=== PATIENT | male | born 1955 | race Caucasian/White ===

== ENCOUNTER 2018-06-26 18:45 | Observation (INO) ==
[2018-06-26] MEDS ORDERED: KETOROLAC 30 MG/1 ML VIAL IV STA (19:04)
[2018-06-26] MEDS ORDERED: ONDANSETRON 4 MG/2 ML VIAL IV STA (19:04)
[2018-06-26] MEDS ORDERED: ONDANSETRON 4 MG/2 ML VIAL IV PRN (19:35)
[2018-06-26] MEDS ORDERED: MORPHINE 4 MG/1 ML VIAL IV PRN (19:39)
[2018-06-26 19:50] LABS: Basophils # 0.1 10*3/uL (0.0-0.2); Basophils % 0.3 % (0.0-0.8); Hemoglobin 14.6 GM/DL (14.0-18.0); Immature Granulocytes Absolute 0.19 #; Lymphocytes % 5.4 % (21.2-54.2); Mean Corpuscular Hemoglobin 30 PG (27-34); Mean Platelet Volume 10.7 FL (9.6-12.0); Monocytes # 1.8 10*3/uL (0.11-0.8); Monocytes % 9.8 % (1.7-12.7); Neutrophils # 15.7 10*3/uL (1.4-7.4); Neutrophils % 83.5 % (38.7-73.9); Platelet Count 263 T/CUMM (130-400); Red Blood Count 4.94 MC/CUMM (3.8-5.5); Red Cell Distribution Width 13.1 % (9.3-17.3); White Blood Count 18.8 T/CUMM (4-12)
[2018-06-26] MEDS ORDERED: metroNIDAZOLE INJ 500 MG in PREMIX 1 EACH IV SCH (20:00)
[2018-06-26] MEDS ORDERED: DEXTROSE 5% LACTATED RINGERS 1,000 ML IV SCH (20:00)
[2018-06-26 20:01] LABS: Albumin 3.6 G/DL (3.4-5.0); Bilirubin,Total 1.2 MG/DL (0.2-1.0); Calcium 8.9 MG/DL (8.5-10.1); Osmolality,Calculated 266.5 MOS/KG (273-304); Potassium 2.9 MMOL/L (3.5-5.1); Total Protein 7.2 G/DL (6.4-8.3)
[2018-06-26 20:12] LABS: Apearance,Urine CLEAR (Clear); Bilirubin,Urine Negative (Negative); Blood, Urine Negative (Negative); Glucose,Urine (UA) Negative (Negative); Ketones,Urine Negative (Negative); Mucus,Urine Occasional /LPF (Occasional); Nitrite,Urine Negative (Negative); Protein,Urine Negative; RBC,Urine <1 /HPF (0-4); Urine Color Yellow (Yellow); Urine Urobilinogen < 2.0 EU/DL (0.2-1.0); WBC,Urine 1 /HPF (0-6)
[2018-06-27] MEDS: PIPERACILLIN/TAZOBACTAM 3,375 MG in SODIUM CHLORIDE 0.9% 100 ML IV SCH ×2 (02:33→10:07)
[2018-06-27 04:50] LABS: Basophils % 0.2 % (0.0-0.8); Eosinophils % 0.1 % (0.00-10.9); Hematocrit 38.2 VOL% (42.0-52.0); Hemoglobin 12.9 GM/DL (14.0-18.0); Immature Granulocytes % 0.7 %; Immature Granulocytes Absolute 0.12 #; Lymphocytes # 1.7 10*3/uL (1.4-4.0); Lymphocytes % 9.9 % (21.2-54.2); Mean Corpuscular HGB Conc 33.8 GM/DL (32-36); Mean Corpuscular Hemoglobin 30 PG (27-34); Monocytes # 1.7 10*3/uL (0.11-0.8); Monocytes % 10.2 % (1.7-12.7); Neutrophils # 13.5 10*3/uL (1.4-7.4); Neutrophils % 78.9 % (38.7-73.9); Platelet Count 235 T/CUMM (130-400); Red Blood Count 4.34 MC/CUMM (3.8-5.5); Red Cell Distribution Width 13.2 % (9.3-17.3); White Blood Count 17.1 T/CUMM (4-12)
[2018-06-27 05:13] LABS: Bilirubin,Total 1.4 MG/DL (0.2-1.0); Calcium 8.2 MG/DL (8.5-10.1); Osmolality,Calculated 269.2 MOS/KG (273-304); Potassium 2.7 MMOL/L (3.5-5.1); Total Protein 6.6 G/DL (6.4-8.3)
[2018-06-27] MEDS ORDERED: KETOROLAC 10 MG TABLET PO ONE (06:30)
[2018-06-27] MEDS ORDERED: TISSUE ADHESIVE 1 EACH APPLICATOR TOP ONE (07:36)
[2018-06-27] MEDS ORDERED: LIDOCAINE 1%/EPI INJ 20 ML VIAL ONE (07:36)
[2018-06-27] MEDS ORDERED: BUPIVACAINE MPF 0.25% 30 ML VIAL ONE (07:36)
[2018-06-27] MEDS: POTASSIUM CHLORIDE RIDER 10 MEQ in PREMIX 1 EACH IV PRN ×2 (08:11→12:16)
[2018-06-27] MEDS: LISINOPRIL/HCTZ 20-25 MG TABLET PO SCH (08:12)
[2018-06-27] MEDS ORDERED: PANTOPRAZOLE 40 MG VIAL IV SCH (09:00)
[2018-06-27] MEDS ORDERED: PROPOFOL 200 MG/20 ML VIAL IV ONE (10:33)
[2018-06-27] MEDS ORDERED: SEVOFLURANE 1 UNIT/15 MINUTE INH ONE (10:33)
[2018-06-27] MEDS ORDERED: ePHEDrine 50 MG/ML AMP ONE (10:34)
[2018-06-27] MEDS ORDERED: SUCCINYLCHOLINE 200 MG/10 ML VIAL ONE (10:34)
[2018-06-27] MEDS ORDERED: ROCURONIUM 100 MG/10 ML VIAL IV ONE (10:34)
[2018-06-27] MEDS ORDERED: ONDANSETRON 4 MG/2 ML VIAL ONE ×2 (10:35→10:51)
[2018-06-27] MEDS ORDERED: DEXAMETHASONE 10 MG/1 ML VIAL ONE (10:35)
[2018-06-27] MEDS ORDERED: METOCLOPRAMIDE 10 MG/2 ML VIAL ONE (10:35)
[2018-06-27] MEDS ORDERED: ACETAMINOPHEN 1,000 MG/100 ML VIAL IV ONE (10:35)
[2018-06-27] MEDS ORDERED: PHENYLEPHRINE 1 MG/10 ML SYRINGE IV ONE (10:36)
[2018-06-27] MEDS: AMOXICILLIN/CLAV 875 MG TABLET PO SCH ×2 (11:14→22:05)
[2018-06-27 11:41] LABS: Basophils % 0.2 % (0.0-0.8); Eosinophils % 0.1 % (0.00-10.9); Hematocrit 38.3 VOL% (42.0-52.0); Hemoglobin 12.9 GM/DL (14.0-18.0); Immature Granulocytes % 0.7 %; Immature Granulocytes Absolute 0.12 #; Lymphocytes # 0.7 10*3/uL (1.4-4.0); Mean Corpuscular HGB Conc 33.7 GM/DL (32-36); Mean Corpuscular Hemoglobin 30 PG (27-34); Mean Corpuscular Volume 88.2 FL (87-102); Mean Platelet Volume 10.5 FL (9.6-12.0); Monocytes # 1.1 10*3/uL (0.11-0.8); Monocytes % 6.7 % (1.7-12.7); Neutrophils % 88.3 % (38.7-73.9); Platelet Count 210 T/CUMM (130-400); Red Blood Count 4.34 MC/CUMM (3.8-5.5); Red Cell Distribution Width 13.2 % (9.3-17.3)
[2018-06-27 12:01] LABS: Band Neutrophils 3 % (0-10); Lymphocytes 2 % (20-55); Segmented Neutrophils 84 % (50-85); Total Cells Counted 100
[2018-06-27 12:02] LABS: Microcytosis Slight
[2018-06-27 12:09] LABS: Calcium 7.8 MG/DL (8.5-10.1); Osmolality,Calculated 267.5 MOS/KG (273-304); Potassium 3.1 MMOL/L (3.5-5.1)
[2018-06-27] MEDS ORDERED: MAGNESIUM SULF RIDER 4 GM in PREMIX 1 EACH IV PRN (12:21)
[2018-06-27] MEDS: MAGNESIUM SULF RIDER 2 GM in PREMIX 1 EACH IV PRN ×2 (12:32→17:52)
[2018-06-27] MEDS: POTASSIUM CHLORIDE INJ 40 MEQ in DEXTROSE 5% LACTATED RINGERS 1,000 ML IV SCH (12:38)
[2018-06-27] MEDS: POTASSIUM CHLORIDE 20 MEQ TABLET PO PRN ×2 (18:21→22:05)
[2018-06-28] MEDS: LISINOPRIL/HCTZ 20-25 MG TABLET PO SCH ×3 (01:50→21:54)
[2018-06-28] MEDS: POTASSIUM CHLORIDE 20 MEQ TABLET PO PRN ×2 (02:18→21:59)
[2018-06-28] MEDS: POTASSIUM CHLORIDE INJ 40 MEQ in DEXTROSE 5% LACTATED RINGERS 1,000 ML IV SCH (02:19)
[2018-06-28 05:22] LABS: Basophils % 0.1 % (0.0-0.8); Hematocrit 37.8 VOL% (42.0-52.0); Hemoglobin 12.6 GM/DL (14.0-18.0); Immature Granulocytes % 1.2 %; Immature Granulocytes Absolute 0.23 #; Lymphocytes % 5.4 % (21.2-54.2); Mean Corpuscular HGB Conc 33.3 GM/DL (32-36); Mean Corpuscular Hemoglobin 30 PG (27-34); Mean Corpuscular Volume 89.2 FL (87-102); Mean Platelet Volume 11.4 FL (9.6-12.0); Monocytes # 1.4 10*3/uL (0.11-0.8); Neutrophils # 16.6 10*3/uL (1.4-7.4); Neutrophils % 86.3 % (38.7-73.9); Platelet Count 221 T/CUMM (130-400); Red Blood Count 4.24 MC/CUMM (3.8-5.5); Red Cell Distribution Width 13.1 % (9.3-17.3); White Blood Count 19.3 T/CUMM (4-12)
[2018-06-28 05:40] LABS: Calcium 8.3 MG/DL (8.5-10.1); Osmolality,Calculated 273.4 MOS/KG (273-304); Potassium 3.7 MMOL/L (3.5-5.1)
[2018-06-28] MEDS: PANTOPRAZOLE 40 MG TABLET PO SCH (08:16)
[2018-06-28] MEDS: AMOXICILLIN/CLAV 875 MG TABLET PO SCH ×3 (08:16→21:54)
[2018-06-29 05:02] LABS: Basophils # 0.1 10*3/uL (0.0-0.2); Basophils % 0.4 % (0.0-0.8); Eosinophils # 0.2 10*3/uL (0.0-0.87); Eosinophils % 1.4 % (0.00-10.9); Hemoglobin 12.5 GM/DL (14.0-18.0); Immature Granulocytes % 0.7 %; Immature Granulocytes Absolute 0.09 #; Lymphocytes # 2.3 10*3/uL (1.4-4.0); Lymphocytes % 18.6 % (21.2-54.2); Mean Corpuscular HGB Conc 32.1 GM/DL (32-36); Mean Corpuscular Hemoglobin 30 PG (27-34); Mean Platelet Volume 11.6 FL (9.6-12.0); Monocytes # 0.9 10*3/uL (0.11-0.8); Monocytes % 7.7 % (1.7-12.7); Neutrophils # 8.6 10*3/uL (1.4-7.4); Neutrophils % 71.2 % (38.7-73.9); Platelet Count 236 T/CUMM (130-400); Red Blood Count 4.24 MC/CUMM (3.8-5.5); Red Cell Distribution Width 13.3 % (9.3-17.3); White Blood Count 12.1 T/CUMM (4-12)
[2018-06-29 06:37] LABS: Calcium 8.1 MG/DL (8.5-10.1); Osmolality,Calculated 283.1 MOS/KG (273-304); Potassium 3.7 MMOL/L (3.5-5.1)
[2018-06-29] MEDS: POTASSIUM CHLORIDE 20 MEQ TABLET PO PRN (06:53)
[2018-06-29] MEDS: LISINOPRIL/HCTZ 20-25 MG TABLET PO SCH (08:13)
[2018-06-29] MEDS: AMOXICILLIN/CLAV 875 MG TABLET PO SCH ×2 (08:13→09:45)
[2018-06-29] MEDS: PANTOPRAZOLE 40 MG TABLET PO SCH (08:13)
[2018-06-29 09:01] VITALS: BP 125/79
== END 2018-06-29 10:21 | disposition home or self-care (01) ==
LOC: EDUNIT# → EDBD → N.EDINP 18:45 → N.ED 18:45 → N.5E 20:14
PROVIDERS: ADMIT Surgery; ATTEND Surgery